=== PATIENT | male | born 1985 | race Two or more races ===

== ENCOUNTER 2023-02-13 12:05 | Emergency (ER) | payer MEDICAID, OTHER ==
[~2023-02-13] VITALS: Ht 170.2 cm; Wt 69.7 kg
[2023-02-13 13:58] LABS: Salicylate < 1.7 mg/dL (2.8-20.0)
[2023-02-13] MEDS ORDERED: LORazepam 2MG/ML-1ML VIAL IM ONE (14:15)
[2023-02-13 14:19] LABS: Urine Bacteria NONE SEEN /hpf (None Seen); Urine Blood Negative /uL (Negative); Urine Clarity Clear (Clear); Urine Color Yellow (Yellow); Urine Mucus FEW (None Seen); Urine Protein, UAD 1+ (Negative); Urine Specific Gravity 1.033 (1.001-1.035); Urine Urobilinogen Normal (Negative); Urine WBC <1 /hpf (0 - 3); Urine pH 7.5 (5.0-8.0)
[2023-02-13 14:29] LABS: Alcohol, Urine < 3.0 mg/dL (0-10); Amphetamine Screen, Urine NEGATIVE (NEGATIVE); Barbiturate Scree,Urine NEGATIVE (NEGATIVE); Benzodiazephine Screen, Urine NEGATIVE (NEGATIVE); Cannabinoid Screen, Urine NEGATIVE (NEGATIVE); Cocaine Screen, Urine NEGATIVE (NEGATIVE); Opiate Scree,Urine NEGATIVE (NEGATIVE); Phencyclidine Screen, Urine NEGATIVE (NEGATIVE)
[2023-02-13 14:45] LABS: Acetaminophen < 2.0 ug/mL (10-30)
[2023-02-13 15:30] LABS: COVID19 ANTIGEN SOFIA FIA NEGATIVE (NEGATIVE)
[2023-02-13 18:53] LABS: Basophils # (auto) 0.1 10 ^3/uL (0-0.2); Basophils % (auto) 0.9 % (0.0-2.0); Eosinophils # (auto) 0 10 ^3/uL (0-0.8); Eosinophils % (auto) 0.6 % (0.0-7.0); Hematocrit 40.8 % (41.0-53.0); Hemoglobin 13.8 g/dL (13.5-17.5); Lymphocytes # (auto) 1.4 10 ^3/uL (0.4-5.4); Lymphocytes % (auto) 24.5 % (10.0-50.0); Mean Corpuscular Hemoglobin 29.9 pg (28.0-32.0); Mean Corpuscular Hgb Conc. 33.8 g/dL (32.0-36.0); Mean Corpuscular Volume 88.7 fL (80.0-100.0); Monocytes # (auto) 0.6 10 ^3/uL (0-1.3); Monocytes % (auto) 9.9 % (0.0-12.0); Neutrophils # (auto) 3.8 10 ^3/uL (1.6-8.6); Neutrophils % (auto) 64.1 % (37.0-80.0); White Blood Cell 5.9 10^3/uL (4.4-10.8)
[2023-02-13 19:14] LABS: Albumin 4.1 g/dL (3.4-5.0); BUN/Creatinine Ratio 14.7 (10.0-20.0); Calcium 8.9 mg/dL (8.5-10.1); Potassium 4.2 mmol/L (3.5-5.1)
[2023-02-13 19:16] LABS: Bilirubin, Total 0.3 mg/dL (0.2-1.0); Total Protein 7.9 g/dL (6.4-8.2)
[2023-02-14 05:31] VITALS: PULSE 58; RESP 16; O2SAT 97
[2023-02-14 08:00] VITALS: PULSE 81; RESP 16; O2SAT 99
[2023-02-14] MEDS: buPROPion HCL 100 MG TAB PO SCH (10:16)
[2023-02-14] MEDS: HALOPERIDOL 5 MG TAB PO SCH ×2 (10:17→23:14)
[2023-02-14] MEDS: busPIRone HCL 10 MG TAB PO SCH ×3 (10:17→23:14)
[2023-02-14] MEDS ORDERED: hydrOXYzine 25 MG TAB or CAP ONE (10:33)
[2023-02-14] MEDS ORDERED: ACETAMINOPHEN 325 MG TAB PO ONE (12:30)
[2023-02-14 19:45] VITALS: BP 108/72; PULSE 73; RESP 15; TEMP 97.8; O2SAT 98
[2023-02-15] MEDS: HALOPERIDOL 5 MG TAB PO SCH ×2 (06:09→14:10)
[2023-02-15] MEDS: busPIRone HCL 10 MG TAB PO SCH ×2 (06:09→14:10)
[2023-02-15] MEDS: buPROPion HCL 100 MG TAB PO SCH (13:32)
== END 2023-02-15 18:41 | disposition left against medical advice (07) ==
LOC: ER 12:05
DX: R45.851 Suicidal ideations (principal); F41.9 Anxiety disorder, unspecified; F32.9 Major depressive disorder, single episode, unspecified; F15.10 Other stimulant abuse, uncomplicated; F20.9 Schizophrenia, unspecified; Z20.822 Contact with and (suspected) exposure to COVID-19
CPT/HCPCS: 36415; 80053; 80307; 80329; 81001; 85025; 87426; 96372; 99285; J2060

== ENCOUNTER 2023-02-20 04:25 | Emergency (ER) | payer SELFPAY ==
[~2023-02-20] VITALS: Ht 170.2 cm; Wt 68.2 kg
[2023-02-20 05:28] LABS: Basophils # (auto) 0.2 10 ^3/uL (0-0.2); Basophils % (auto) 3.2 % (0.0-2.0); Eosinophils # (auto) 0 10 ^3/uL (0-0.8); Eosinophils % (auto) 0.5 % (0.0-7.0); Hematocrit 42.9 % (41.0-53.0); Hemoglobin 14.6 g/dL (13.5-17.5); Lymphocytes # (auto) 1.4 10 ^3/uL (0.4-5.4); Lymphocytes % (auto) 22.7 % (10.0-50.0); Mean Corpuscular Hemoglobin 29.4 pg (28.0-32.0); Mean Corpuscular Hgb Conc. 33.9 g/dL (32.0-36.0); Mean Corpuscular Volume 86.8 fL (80.0-100.0); Monocytes # (auto) 0.5 10 ^3/uL (0-1.3); Monocytes % (auto) 7.8 % (0.0-12.0); Neutrophils % (auto) 65.8 % (37.0-80.0); Nucleated Red Blood Cells % 0.1 %; Red Blood Cells 4.95 10^6/uL (4.5-5.90); Red Cell Distribution Width 13.2 % (11.8-14.3); White Blood Cell 6.1 10^3/uL (4.4-10.8)
[2023-02-20 05:33] VITALS: PULSE 106; RESP 18; O2SAT 96
[2023-02-20 05:48] LABS: Albumin 4.3 g/dL (3.4-5.0); Calcium 8.5 mg/dL (8.5-10.1); Potassium 4.1 mmol/L (3.5-5.1); Salicylate < 1.7 mg/dL (2.8-20.0)
[2023-02-20 05:49] LABS: Acetaminophen < 2.0 ug/mL (10-30)
[2023-02-20 05:50] LABS: BUN/Creatinine Ratio 19.8 (10.0-20.0)
[2023-02-20 05:52] LABS: Bilirubin, Total 0.1 mg/dL (0.2-1.0); Total Protein 8.3 g/dL (6.4-8.2)
[2023-02-20] MEDS ORDERED: LORazepam 0.5 MG TAB PO ONE ×2 (06:00→23:00)
[2023-02-20] MEDS ORDERED: ACETAMINOPHEN 325 MG TAB PO ONE (06:00)
[2023-02-20] MEDS ORDERED: busPIRone HCL 10 MG TAB PO ONE (07:00)
[2023-02-20] MEDS ORDERED: buPROPion HCL 100 MG TAB PO ONE (07:00)
[2023-02-20 07:25] VITALS: RESP 18; O2SAT 96
[2023-02-20 08:13] LABS: Amphetamine Screen, Urine POSITIVE (NEGATIVE); Barbiturate Scree,Urine NEGATIVE (NEGATIVE); Benzodiazephine Screen, Urine NEGATIVE (NEGATIVE); Cannabinoid Screen, Urine NEGATIVE (NEGATIVE); Cocaine Screen, Urine NEGATIVE (NEGATIVE); Opiate Scree,Urine NEGATIVE (NEGATIVE); Phencyclidine Screen, Urine NEGATIVE (NEGATIVE)
[2023-02-20 23:14] VITALS: PULSE 60; RESP 18; O2SAT 98
[2023-02-21] MEDS: buPROPion HCL 100 MG TAB PO SCH (08:07)
[2023-02-21] MEDS: busPIRone HCL 10 MG TAB PO SCH ×2 (12:55→21:13)
[2023-02-21] MEDS: OLANZapine 5 MG TAB PO SCH ×2 (12:55→21:13)
[2023-02-21 21:09] VITALS: PULSE 68; RESP 20; O2SAT 98
[2023-02-22 07:18] VITALS: PULSE 52; RESP 18; O2SAT 99
[2023-02-22] MEDS: buPROPion HCL 100 MG TAB PO SCH (08:04)
[2023-02-22] MEDS: OLANZapine 5 MG TAB PO SCH (10:00)
[2023-02-22] MEDS: busPIRone HCL 10 MG TAB PO SCH (10:18)
[2023-02-22 18:53] VITALS: BP 120/79; PULSE 77; RESP 16; TEMP 98.7; O2SAT 98
== END 2023-02-22 18:59 | disposition short-term general hospital (02) ==
LOC: ER 04:25
DX: R45.851 Suicidal ideations (principal); F41.9 Anxiety disorder, unspecified; F20.9 Schizophrenia, unspecified; F15.90 Other stimulant use, unspecified, uncomplicated
CPT/HCPCS: 36415; 80053; 80307; 80320; 80329; 85025